=== PATIENT | male | born 1970 | race American Indian/Alaskan Native ===

== ENCOUNTER 2018-12-11 12:42 | Emergency (ER) | payer SELFPAY ==
--- NOTE | 2018-12-11 13:04 | Emergency Department Report ---
Blank Doc - Documentation Documentation: This is a 48-year-old male that presents with left wrist pain and swelling. St ated happened after work while lifting. This initial assessment/diagnostic orders/clinical plan/treatment(s) is/are subject to change based on patient's health status, clinical progression and re-assessment by fellow clinical providers in the ED. Further treatment and workup at subsequent clinical providers discretion. Patient/guardians urged not to elope from the ED as their condition may be serious if not clinically assessed and managed. Initial orders include: 1- Patient sent to [facility] for further evaluation and treatment 2- xray
--- NOTE | 2018-12-11 13:54 | XRay Report ---
LEFT WRIST, 4 views: HISTORY: Pain. No comparison. Normal bone mineralization. Chronic appearing deformity of the scaphoid bone is suspected. No acute fracture is appreciated. There is widening of the scapholunate interval consistent with scapholunate ligament injury. There are [id number] osteoarthritic changes at the radiocarpal joint. 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 Degenerative changes. Scapholunate ligament injury is suspected.
--- NOTE | 2018-12-11 14:07 | Emergency Department Report ---
ED Back Pain/Injury HPI - General Chief Complaint: Extremity Problem,Nontraumatic Stated Complaint: LT WRIST INJURY Time Seen by Provider: 12/11/18 13:03 Source: patient Limitations: No Limitations - History of Present Illness Initial Comments: Patient is a 48-year-old male who comes to the ER today complaining of left wrist pain. Note that he does have an old injury to his left wrist but he also has reinjured it. 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 He did not fall but he does do repetitive motion tasks and that is what has triggered the pain. He is neurovascularly intact. He has taken some Motrin at home but is not relieving the pain. Patient takes no medicine on a daily basis. Movement makes the pain worse. - Related Data Previous Rx's Medication Instructions Recorded Last Taken Type Naproxen [Naprosyn] 500 mg PO BID PRN #20 tablet 12/11/18 Unknown Rx predniSONE [Deltasone] 20 mg PO DAILY #5 tablet 12/11/18 Unknown Rx Allergies Allergy/AdvReac Type Severity Reaction Status Date / Time No Known Allergies Allergy Unverified 12/11/18 12:47 ED Review of Systems ROS: Stated complaint: LT WRIST INJURY Other details as noted in HPI Comment: All other systems reviewed and negative ED Past Medical Hx - Past Medical History Medical history: no medical history ED Back Pain Physical Exam - Exam General: Vital signs noted. No distress. Alert and acting appropriately. WDWN patient in NAD VS per RN flow sheet Alert and oriented to person, place and time. S1-S2. No S3 or S4. No systolic or diastolic murmur. No JVD. No pitting edema.HR 90 ON EXAM Lungs clear to auscultation bilaterally anteriorly and posteriorly. Abdomen soft nontender bowel sounds -4. Moves all extremities well. PREVIOUS L WRIST FX WHICH WAS NOT SET SO HE HAS A CHRONIC DEFORMITY. RAD/MED AND ULNAR NERVES INTACT. RAD/ULNAR PULSE NORMAL. RAPID CAP REFILL. NO SWELLING NO SWELLING ON EXAM. NEG FINK. TEST. Mood and affect appropriate. Back/Abdomen: No Abdominal Tenderness, No Perithoracic Tenderness, No Perilumbar Tenderness, No Sacroiliac Tenderness, No Flank Tenderness, No Straight Leg Raise Pain Neuro: Yes Normal Sensation, Yes Normal DTR's, Yes Normal Gait, No Motor Weakness ED Course Vital Signs 12/11/18 13:03 Temperature 98.5 F Pulse Rate 109 H Respiratory 15 Rate Blood Pressure 174/109 [Left] O2 Sat by Pulse 98 Oximetry Ed Back Pain Tests - Tests Tests: Abnormal X Rays ED Medical Decision Making - Radiology Data Radiology results: report reviewed, image reviewed - Medical Decision Making xray noted exam noted- see exam section medicated for pain capo for comfort dc home with dc plan of care and ortho follow up. Pt instructed to monitor his bp because it was elevated today on exam. He has no history of htn and is on no meds for bp. Vital Signs 12/11/18 12/11/18 13:03 15:01 Temperature 98.5 F Pulse Rate 109 H Respiratory 15 18 Rate Blood Pressure 174/109 [Left] O2 Sat by Pulse 98 Oximetry Critical care attestation.: If time is entered above; I have spent that time in minutes in the direct care of this critically ill patient, excluding procedure time. ED Disposition Clinical Impression: Wrist pain, left Disposition: DC-01 TO HOME OR SELFCARE Is pt being admited?: No Does the pt Need Aspirin: No Condition: Stable Instructions: Wrist Injury (ED) Additional Instructions: FOLLOW UP WITH DR CAMPBELL WE DISCUSSED TO EVALUATE THE LIGAMENT - TO SEE IF NEW OR OLD INJURY CAPO FOR COMFORT MEDS ORDERED TODAY MONITOR BP AND FOLLOW UP WITH PCP IF IT REMAINS ELEVATED REFERRAL BELOW Prescriptions: predniSONE [Deltasone] 20 mg PO DAILY #5 tablet Naproxen [Naprosyn] 500 mg PO BID PRN #20 tablet PRN Reason: Pain Referrals: JASSI CAMPBELL MD [Staff Physician] - 3-5 Days ZAK NAVA MD [Staff Physician] - 3-5 Days Time of Disposition: 14:11
[2018-12-11] MEDS ORDERED: TORADOL IM ONE (14:10)
[2018-12-11] MEDS ORDERED: DECADRON IM ONE (14:10)
[2018-12-11 16:02] VITALS: BP 140/95
== END 2018-12-11 16:02 | disposition home or self-care (01) ==
LOC: ED 12:42
DX: M25.532 Pain in left wrist (principal)
CPT/HCPCS: 73110; 96372; 99283; J1100; J1885